=== PATIENT | male | born 1945 | race Caucasian/White ===

== ENCOUNTER → 2017-03-06 | Outpatient (CLI) | payer MEDICARE, OTHER ==
[~2017-03-06] MED LIST: ASPI325T10 PO; CRES20TA PO; FISH1000 PO; HYDR-3533 PO; TAB-TAB PO
== END ==
LOC: PLAB 10:44
PROVIDERS: ATTEND Family Medicine
DX: E34.8 Other specified endocrine disorders (principal)
CPT/HCPCS: 36415; 84403

== ENCOUNTER → 2017-08-21 | Outpatient (CLI) | payer MEDICARE, OTHER | LOC: PLAB 15:20 | PROVIDERS: ATTEND Family Medicine | DX: E29.1 Testicular hypofunction (principal) | CPT/HCPCS: 36415; 84403 ==

== ENCOUNTER → 2018-02-08 | Outpatient (CLI) | payer MEDICARE, OTHER ==
[2018-02-12 14:14] LABS: ESTRADIOL 60 pg/mL (10-40); ESTRONE 40 pg/mL (10-60); TESTOSTERONE,TOTAL 1210 ng/dL (240-950)
== END ==
LOC: PLAB 10:13
PROVIDERS: ATTEND Family Medicine
DX: E34.8 Other specified endocrine disorders (principal)
CPT/HCPCS: 36415; 82671; 84403